=== PATIENT | female | born 2000 | race Caucasian/White ===

== ENCOUNTER 2024-10-07 13:43 | Emergency (ER) | payer OTHER, SELFPAY ==
[2024-10-07 13:58] VITALS: BP 134/87; PULSE 83; TEMP 36.4; O2SAT 98; BMI 47.2
--- NOTE | 2024-10-07 14:09 | ED_ITS ---
<Statement entered by Shilo Grimaldo MD - 10/08/24 12:09> Chart was sent to my inbox for administrative and group management purposes. I was the attending physicians working during the patients hospital course. The patient was seen and managed independently by the MLP. I did not personally see or evaluate this patient, nor was I involved in the patient medical decision making process or plans of care. Pt was dispositioned by the MLP with complete independence. I was available for consultation should the MLP request during this patients ED stay. This documentation has been reviewed and approved. HPI HPI - General Adult General Chief complaint: Urogenital-Female Stated complaint: URINARY TROUBLE, BACK AND BLADDER PAIN Time Seen by Provider: 10/07/24 13:47 Source: patient Mode of arrival: walk-in History of Present Illness HPI narrative: Patient is a 23-year-old female who presents from [facility] for evaluation of urinary retention. She states she has not passed any urine since yesterday afternoon. She states she has a history of similar urinary retention in the past since age 20 after an overdose. She states that she has had intermittent issues with urinary retention requiring a Feldman catheter. She states that is typically relieved with taking her Flomax, her symptoms will resolve after few days. She has been out of her Flomax at the rehab facility for several days and the pharmacy has not gotten it in. She denies fevers, chills, nausea, vomiting. She denies a possibility of . She reports pressure in the bladder and low back. She has not had any hematuria. Related Data Home Medications ?Medication ?Instructions ?Recorded ?Confirmed aripiprazole 9.75 mg/1.3 mL mg IM 10/07/24 intramuscular solution ascorbic acid (vitamin C) 500 mg 10/07/24 tablet (Vitamin C) escitalopram oxalate 10 mg tablet 10 mg PO DAILY 10/07/24 10/07/24 (Lexapro) levothyroxine 25 mcg tablet 25 mcg PO QDAY 10/07/24 10/07/24 (Euthyrox) prazosin 1 mg capsule mg 10/07/24 tamsulosin 0.4 mg capsule (Flomax) 0.4 mg PO DAILY 10/07/24 10/07/24 Allergies Allergy/AdvReac Type Severity Reaction Status Date / Time No Known Drug Allergies Allergy Verified 10/07/24 13:58 Opioid HPI Opioid Management Most Recent Opioid Data: No Data to Display Review of Systems ROS Constitutional Denies: fever or chills Ears, nose, mouth, and throat Denies: throat pain or nasal congestion Cardiovascular Denies: chest pain Respiratory Denies: shortness of breath Gastrointestinal Denies: nausea or vomiting Genitourinary Reports: difficulty voiding and decreased urine ouput Musculoskeletal Reports: back pain Neurological Denies: numbness in extremities or weakness in extremities Hematologic/Lymphatic Denies: easy bruising or easy bleeding PFSH PFS Social History Little interest or pleasure in doing things: not at all Feeling down, depressed, or hopeless: not at all Exam Narrative Exam Narrative: Gen.: Awake, alert, in no distress Head: Normocephalic, atraumatic ENT: Moist mucous membranes Respiratory: No respiratory distress Gastrointestinal: Abdomen is soft, nondistended and nontender to palpation Extremities: Moves extremities equally Psych: Normal mood and affect Neuro: No focal neuro deficit Skin: Warm, dry, intact Constitutional Vital Signs, click to edit/add: Last Vital Signs Temp 97.5 F L 10/07/24 13:58 Pulse 83 10/07/24 13:58 Resp 16 10/07/24 13:58 BP 134/87 10/07/24 13:58 Pulse Ox 98 10/07/24 13:58 O2 Del Method Room Air 10/07/24 13:58 Course Vital Signs Vital signs: Vital Signs Temperature 97.5 F L 10/07/24 13:58 Pulse Rate 83 10/07/24 13:58 Respiratory Rate 16 10/07/24 13:58 Blood Pressure 134/87 10/07/24 13:58 Pulse Oximetry 98 10/07/24 13:58 Oxygen Delivery Method Room Air 10/07/24 13:58 Temperature 97.5 F L 10/07/24 13:58 Pulse Rate 83 10/07/24 13:58 Respiratory Rate 16 10/07/24 13:58 Blood Pressure 134/87 10/07/24 13:58 Pulse Oximetry 98 10/07/24 13:58 Oxygen Delivery Method Room Air 10/07/24 13:58 Medical Decision Making MDM Narrative Medical decision making narrative: Bladder scan shows greater than 400 mL in the bladder, patient was unable to provide a urinary specimen in the ER. Feldman catheter is placed and she was dosed with Flomax. Feldman catheter is draining well, patient reports improvement and urine specimen with no evidence of UTI, test is negative. I did touch base with [facility] and they are comfortable with Feldman catheter removal in several days and will make sure that the patient is able to get her Flomax. She was given urology follow-up as well. Return to the ER if symptoms change or worsen SUPERVISED APC VISIT, PHYSICIAN ATTESTATION: Based on the medical record the care appears appropriate. ? Medical Records Medical records reviewed: Yes I reviewed the patient's medical records Lab Data Lab results reviewed: Yes I reviewed the patient's lab results Labs: Lab Results 10/07/24 Range/Units 14:30 Urine Color Yellow (YELLOW) Urine Clarity Clear (CLEAR) Urine pH 6.0 (5.0-9.0) Ur Specific [place] 1.025 (1.005-1.025) Urine Protein Negative (NEG/TRACE) mg/dL Urine Glucose (UA) Negative (NEGATIVE) mg/dL Urine Ketones Negative (NEGATIVE) mg/dL Urine Occult Blood Negative (NEGATIVE) Urine Nitrite Negative (NEGATIVE) Urine Bilirubin Negative (NEGATIVE) Urine Urobilinogen 0.2 (0.2-1.0) EU/dL Ur Leukocyte Esterase Negative (NEGATIVE) Urine HCG, Qual Negative (NEGATIVE) Discharge Plan Discharge Chief Complaint: Urogenital-Female Clinical Impression: Acute urinary retention Patient Disposition: Home, Self-Care Time of Disposition Decision: 14:51 Condition: Good Prescriptions / Home Meds: No Action aripiprazole 9.75 mg/1.3 mL solution IM ascorbic acid (vitamin C) [Vitamin C] 500 mg tablet escitalopram oxalate [Lexapro] 10 mg tablet 10 mg PO DAILY tamsulosin [Flomax] 0.4 mg capsule 0.4 mg PO DAILY levothyroxine [Euthyrox] 25 mcg tablet 25 mcg PO QDAY prazosin 1 mg capsule Print Language: Yakut Instructions: Feldman Catheter Placement and Care (ED), Acute Urinary Retention in Women (ED) Referrals: Rose Garcia MD [Physician] - As needed Physician,Non-Staff, [Primary Care Provider] - 1 week
[2024-10-07 14:48] LABS: Bilirubin Urine NEGATIVE (NEGATIVE); Blood Urine NEGATIVE (NEGATIVE); Clarity Urine CLEAR (CLEAR); Color Urine YELLOW (YELLOW); Glucose Urine UA NEGATIVE (NEGATIVE); Ketones Urine NEGATIVE (NEGATIVE); Leukocyte Esterase Urine NEGATIVE (NEGATIVE); Nitrite Urine NEGATIVE (NEGATIVE); Protein Urine NEGATIVE (NEG/TRACE); Specific Gravity Urine 1.025 (1.005-1.025); Urine Microscopic Indicated NO; Urobilinogen Urine 0.2 EU/dL (0.2-1.0)
[2024-10-07 14:49] LABS: HCG Qualitative Urine* NEGATIVE (NEGATIVE); Internal Control Within Normal Limits
[2024-10-07] MEDS: TAMSULOSIN HCL 0.4 MG CAPSULE PO (15:02)
== END 2024-10-07 15:14 | disposition home or self-care (01) ==
PROVIDERS: Physician Assistant; Emergency Provider Emergency Medicine
DX: R33.9 Retention of urine, unspecified (principal)
CPT/HCPCS: 51702; 81003; 84703; 99284

== ENCOUNTER 2024-10-08 15:36 | Emergency (ER) | payer OTHER, SELFPAY ==
--- NOTE | 2024-10-08 15:38 | ED_ITS ---
<Statement entered by Shilo Grimaldo MD - 10/08/24 18:11> Chart was sent to my inbox for administrative and group management purposes. I was the attending physicians working during the patients hospital course. The patient was seen and managed independently by the MLP. I did not personally see or evaluate this patient, nor was I involved in the patient medical decision making process or plans of care. Pt was dispositioned by the MLP with complete independence. I was available for consultation should the MLP request during this patients ED stay. This documentation has been reviewed and approved. HPI HPI - General Adult General Chief complaint: Urogenital-Female Stated complaint: CATH COMP Time Seen by Provider: 10/08/24 15:37 Source: patient History of Present Illness HPI narrative: Patient is a 23-year-old female who returns to the emergency department for Feldman catheter replacement. Presents to the emergency department again after a Feldman catheter was placed yesterday here for urinary retention that she has had for several years. She apparently pulled her Feldman catheter out last night because it was hurting her. She has no other focal medical complaints. She is currently residing in a drug and alcohol detox facility. She apparently had an overdose at age 20 that caused her to have urinary difficulty, her Flomax was stopped for several days at the facility causing her to have urinary retention. Feldman catheter was placed yesterday without difficulty and was draining well until the patient removed it. She has not urinated since yesterday. Related Data Home Medications ?Medication ?Instructions ?Recorded ?Confirmed aripiprazole 9.75 mg/1.3 mL mg IM 10/07/24 intramuscular solution ascorbic acid (vitamin C) 500 mg 10/07/24 tablet (Vitamin C) escitalopram oxalate 10 mg tablet 10 mg PO DAILY 10/07/24 10/07/24 (Lexapro) levothyroxine 25 mcg tablet 25 mcg PO QDAY 10/07/24 10/07/24 (Euthyrox) prazosin 1 mg capsule mg 10/07/24 tamsulosin 0.4 mg capsule (Flomax) 0.4 mg PO DAILY 10/07/24 10/07/24 Allergies Allergy/AdvReac Type Severity Reaction Status Date / Time No Known Drug Allergies Allergy Verified 10/07/24 13:58 Opioid HPI Opioid Management Most Recent Opioid Data: No Data to Display Review of Systems ROS Constitutional Denies: fever or chills Ears, nose, mouth, and throat Denies: throat pain Respiratory Denies: shortness of breath or cough Gastrointestinal Denies: abdominal pain, nausea or vomiting Genitourinary Reports: difficulty voiding and decreased urine ouput Integumentary/Breast Denies: rash Neurological Denies: numbness in extremities or weakness in extremities Hematologic/Lymphatic Denies: easy bruising or easy bleeding PFSH [facility], [facility] Social History Little interest or pleasure in doing things: not at all Feeling down, depressed, or hopeless: not at all Exam Narrative Exam Narrative: Gen.: Awake, alert, in no distress Head: Normocephalic, atraumatic ENT: Moist mucous membranes Respiratory: No respiratory distress Gastrointestinal: Abdomen is soft, nondistended and nontender to palpation Extremities: Moves extremities equally Psych: Normal mood and affect Neuro: No focal neuro deficit Skin: Warm, dry, intact Constitutional Vital Signs, click to edit/add: Last Vital Signs Temp 98.1 F 10/08/24 15:46 Pulse 101 H 10/08/24 15:46 Resp 18 10/08/24 15:46 BP 140/91 10/08/24 15:46 Pulse Ox 100 10/08/24 15:46 O2 Del Method Room Air 10/08/24 15:46 Course Vital Signs Vital signs: Vital Signs Temperature 98.1 F 10/08/24 15:46 Pulse Rate 101 H 10/08/24 15:46 Respiratory Rate 18 10/08/24 15:46 Blood Pressure 140/91 10/08/24 15:46 Pulse Oximetry 100 10/08/24 15:46 Oxygen Delivery Method Room Air 10/08/24 15:46 Temperature 98.1 F 10/08/24 15:46 Pulse Rate 101 H 10/08/24 15:46 Respiratory Rate 18 10/08/24 15:46 Blood Pressure 140/91 10/08/24 15:46 Pulse Oximetry 100 10/08/24 15:46 Oxygen Delivery Method Room Air 10/08/24 15:46 Medical Decision Making MDM Narrative Medical decision making narrative: Feldman catheter placed without difficulty and the patient is discharged back to the facility. She was given a referral for urology yesterday and the nurse practitioner who takes care of of medical management at the facility states that they were able to get her on her Flomax again. Feldman catheter should remain in place for the next 1 to 2 days. Return to the ER if symptoms change or worsen Patient was noted by nursing staff to have evidence of yeast infection on placement of the Feldman catheter and she was given a Diflucan in the ER. SUPERVISED APC VISIT, PHYSICIAN ATTESTATION: Based on the medical record the care appears appropriate. ? Medical Records Medical records reviewed: Yes I reviewed the patient's medical records Discharge Plan Discharge Chief Complaint: Urogenital-Female Clinical Impression: Acute urinary retention Patient Disposition: Home, Self-Care Time of Disposition Decision: 15:48 Condition: Good Prescriptions / Home Meds: No Action aripiprazole 9.75 mg/1.3 mL solution IM ascorbic acid (vitamin C) [Vitamin C] 500 mg tablet escitalopram oxalate [Lexapro] 10 mg tablet 10 mg PO DAILY tamsulosin [Flomax] 0.4 mg capsule 0.4 mg PO DAILY levothyroxine [Euthyrox] 25 mcg tablet 25 mcg PO QDAY prazosin 1 mg capsule Print Language: Sinhala Instructions: Acute Urinary Retention in Women (ED) Referrals: Physician,Non-Staff, [Primary Care Provider] - 1 week
[2024-10-08 15:46] VITALS: BP 140/91; PULSE 101; TEMP 36.7; O2SAT 100; BMI 47.2
[2024-10-08] MEDS: FLUCONAZOLE 150 MG TABLET PO (16:10)
== END 2024-10-08 16:25 | disposition home or self-care (01) ==
PROVIDERS: Emergency Provider Emergency Medicine
DX: R33.9 Retention of urine, unspecified (principal); T83.84XA Pain due to genitourinary prosthetic devices, implants and grafts, initial encounter
CPT/HCPCS: 51702; 99284